=== PATIENT | female | born 1975 ===

== ENCOUNTER 2019-06-02 15:29 | Emergency (ER) | payer OTHER ==
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
[2019-06-02] MEDS ORDERED: Iopamidol 755 Mg/ML 100 ML Bottle IVPUSH STA (15:46)
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
[2019-06-02] MEDS ORDERED: Bupivacaine 0.5% 10 ML SDV INJECT ONE (16:50)
[2019-06-02 17:04] LABS: CHLORIDE,CL 100 mmol/L (98-107); SODIUM,NA 134 mmol/L (136-145)
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
--- NOTE | 2019-06-02 17:48 | CR ---
HISTORY: Status post reduction and casting. COMPARISON: From earlier today at 1557 hours FINDINGS: The left hand is examined with PA and lateral views at 1721 hours. During the interval, the comminuted, oblique, intra-articular fracture of the base of the 5th proximal phalanx has been reduced. There is now anatomic alignment of the majority of the articular surface of the base of the 5th proximal phalanx with the head of the 5th metacarpal. There is less than 10 percent ulnar displacement of the largest fracture fragment arising from the ulnar aspect of the base of the 5th proximal phalanx. There is no sign of additional fracture or dislocation. A fiberglass splint has been applied. The soft tissues are normal in appearance without sign of radio-opaque foreign body, although fine detail is reproduced by the fiberglass splint. No significant degenerative disease is seen. IMPRESSION: Satisfactory appearance status post closed reduction and casting of the oblique, comminuted, intra-articular fracture of the ulnar aspect of the base of the 5th proximal phalanx. The relationships of the 5th MCP joint have been restored. Dictated by Max Torres MD @ Jun 02 2019 5:45PM Signed by Dr. Max Torres @ Jun 02 2019 5:47PM
== END 2019-06-02 18:00 | disposition home or self-care (01) ==
LOC: MW.ED 15:29
DX: S62.617A Displaced fracture of proximal phalanx of left little finger, initial encounter for closed fracture (principal); S80.811A Abrasion, right lower leg, initial encounter; S19.9XXA Unspecified injury of neck, initial encounter; Z88.0 Allergy status to penicillin; Z91.040 Latex allergy status; Z88.1 Allergy status to other antibiotic agents; V49.40XA Driver injured in collision with unspecified motor vehicles in traffic accident, initial encounter
CPT/HCPCS: 26725; 36415; 70450; 71260; 72125; 72128; 73120; 73130; 73590; 74177; 80053; 85025; 85610; 99285; J2001; J3490; Q9967